=== PATIENT | male | born 1945 | race Caucasian/White ===

== ENCOUNTER 2017-10-04 23:55 | Emergency (ER) | payer MEDICARE, OTHER ==
[~2017-10-04] VITALS: Ht 172.7 cm; Wt 77.1 kg
[~2017-10-04 23:55] MED LIST: AMLO-96 PO; CEFA2PLA5 IV; CELE-1 PO; ENAL20TA99 PO; ENOX80DI8 SQ; LEVO50TA86 PO; NAPR-1043 PO; OXYC-865 PO; RIVA15TA PO; RIVA20TA PO; SIMV-42 PO; TAMS0.4C70 PO; WARF-1 PO
[2017-10-05] MEDS ORDERED: DIAZEPAM 10 MG/2 ML SYR IVP ONE (00:25)
[2017-10-05] MEDS ORDERED: NS(*) 0.9% 1000 ML BAG 1,000 ML IV ONE (00:25)
[2017-10-05] MEDS ORDERED: KETOROLAC 15 MG/ML VIAL IVP ONE (00:25)
[2017-10-05 01:30] VITALS: BP 142/101
--- NOTE | 2017-10-05 01:43 | RADIOLOGY IMAGING REPORT ---
FACILITY: [facility] PATIENT NAME: Rj Crowley : 1945 MR: [id number] V: [id number] EXAM DATE: ORDERING PHYSICIAN: REBECCA TORRES TECHNOLOGIST: Location: [facility] [place] Patient: Rj Crowley : 1945 Visit/Account:[id number] Date of Sevice: 10/05/2017 VENOUS DOPP LOW RIGHT EXTREMIT HISTORY: Right lower extremity pain. Prior DVT. COMPARISON STUDIES: 01/01/2017 and 12/30/2016. FINDINGS: Grayscale compression, duplex and color Doppler interrogation of the right lower extremity deep veins from common femoral vein to proximal calf was performed. The greater saphenous vein in the ipsilater al proximal thigh was evaluated using similar technique. Imaging of the contralateral common femoral vein was obtained for comparison. Right lower extremity: Common femoral vein: Normal. Deep femoral vein: Normal. Femoral vein: There are linear echogenic bands in the proximal right superficial femoral vein that ma y be sequela of prior thrombus versus artifact. No acute thrombus. Popliteal vein: Normal. Visualized deep calf veins: Normal. Greater saphenous vein in the proximal thigh: Normal. Popliteal fossa: Normal. Right common femoral vein: Normal. IMPRESSION: 1. There is no evidence for deep venous thrombosis of the right lower extremity. Report Dictated By: Meryl Johnson at 10/05/2017 1:33 AM Report E-Signed By: Meryl Johnson at 10/05/2017 1:38 AM WSN:[id number]
[2017-10-05] MEDS ORDERED: MORPHINE 4 MG/ML SYR IVP ONE (01:50)
[2017-10-05] MEDS ORDERED: DICL-190 PO (01:52)
--- NOTE | 2017-10-05 01:52 | ER Report ---
History and Physical Time Seen By MD: 23:59 Hx. of Stated Complaint: RIGHT LEG PAIN, HIP TO FOOT. NEEDS KNEE REPLACEMENT. HPI/ROS CHIEF COMPLAINT: Right leg pain HISTORY OF PRESENT ILLNESS: 72-year-old male with history of surgery on right leg including tibial volodymyr removal and left knee replacement for osteoarthritis pending right knee replacement for osteoarthritis prior history of DVT presents with right lower extremity pain and discomfort from the right hip only down to the right calf excluding the knee after working on his feet for many hours in the home. Denies falls or trauma. Denies low back pain. Denies dysuria or hematuria. Denies fevers. Denies pain weighing from the back. Denies abdominal pain. No other concerns or complaints today. REVIEW OF SYSTEMS: Respiratory: No cough, no dyspnea. Cardiovascular: No chest pain, no palpitations. Gastrointestinal: No vomiting, no abdominal pain. Musculoskeletal: No back pain. Allergies: Coded Allergies: Shellfish (Verified Allergy, Mild, 10/05/17) ibuprofen (Verified Allergy, Mild, RASH, 10/05/17) Home Meds Reported Medications Tamsulosin Hcl (TAMSULOSIN HCL) 0.4 Mg Cap.er.24h, 0.4 MG PO DAILY, CAP 09/10/16 Levothyroxine Sodium (LEVOTHYROXINE SODIUM) 50 Mcg Tablet, 50 MCG PO QDAY 07/28/13 Amlodipine Besylate (AMLODIPINE BESYLATE) 5 Mg Tablet, 1 TAB PO QDAY, TAB TAKE ONE TABLET BY MOUTH EVERY DAY 07/28/13 Simvastatin (Zocor) 20 Mg Tablet, 20 MG PO QHS, 0 Refills 06/08/08 Enalapril Maleate (Vasotec) 20 Mg Tablet, 20 MG PO DAILY, 0 Refills 06/08/08 Discontinued Scripts Rivaroxaban 20 Mg (XARELTO 20 MG) 20 Mg Tablet, 20 MG PO DAILY, #30 TAB 2 Refills To start after completing Xarelto 15mg PO twice daily for 3 weeks (this would be approximately January 23). Prov:MARCELLE WATT MD 01/03/17 Rivaroxaban 15 Mg (XARELTO 15 MG) 15 Mg Tablet, 15 MG PO BID for 21 Days, #42 TAB 0 Refills Prov:MARCELLE WATT MD 01/03/17 Cefazolin Sodium/D5w (Cefazolin 2 Gram/100 ml-D5w) 2 Gram/100 Ml Plast..bag, 2 GM IV Q8H for 42 Days, #126 BAG 0 Refills Prov:MARCELLE WATT MD 01/03/17 Oxycodone Hcl/Acetaminophen (PERCOCET 5-325 MG TABLET) 1 Each Tablet, 1-2 TAB PO Q4-6H Y for PAIN, #20 Prov:IVETT SILVA DO 12/30/16 Hx Smoking: No Smoking Status: Never Smoker Hx Substance Use Disorder: No Constitutional Vital Sign - Last 24 Hours 10/04/17 10/05/17 10/05/17 10/05/17 23:59 00:15 00:30 00:45 Temp 98.6 Pulse 78 ? 78 Resp 16 B/P (MAP) 175/96 149/100 (116) Pulse Ox 94 95 95 10/05/17 10/05/17 01:00 01:15 Pulse 77 81 B/P (MAP) 148/82 (104) Pulse Ox 91 92 Physical Exam General Appearance: The patient is alert, has no immediate need for airway protection and no current signs of toxicity. Appears to be in no acute distress Eyes: Pupils equal and round no injection. Respiratory: Chest is non tender, lungs are clear to auscultation. Cardiac: regular rate and rhythm no murmurs gallops or rubs Gastrointestinal: Abdomen is soft and non tender, no masses, bowel sounds normal. Musculoskeletal: Neck: Neck is supple and non tender. Extremities have full range of motion and are non tender. Negative Homans sign negative straight leg test. Skin: No rashes or lesions. No edema DIFFERENTIAL DIAGNOSIS: After history and physical exam differential diagnosis was considered for rule out DVT given prior history of DVT. No suspected fracture. Pain control in the ED. Medical Decision Making ED Course/Re-evaluation ED Course Plan of care agreed-upon prior to placement orders. Patient reports inadequate analgesia 4 mg of morphine added prior to discharge. The patient DVT ultrasound results were discussed with patient and to be negative. Agrees to follow up with PCP for further care. Will switch from Aleve 2 diclofenac for now and patient instructed to avoid prolonged standing. Decision to Disposition Date: Oct 05, 2017 Decision to Disposition Time: 01:50 Depart Departure Latest Vital Signs Vital Signs Date Time Temp Pulse Resp B/P (MAP) Pulse Ox O2 Delivery O2 Flow Rate FiO2 10/05/17 01:15 81 92 10/05/17 01:00 148/82 (104) 10/04/17 23:59 98.6 16 Impression: Primary Impression: Right leg pain Condition: Improved Disposition: HOME OR SELF-CARE Referrals: [facility] (PCP) New Scripts Diclofenac Potassium (DICLOFENAC POTASSIUM) 50 Mg Tablet 25 MG PO TID Y for PAIN for 10 Days, #30 TAB Prov: REBECCA TORRES MD 10/05/17 Patient Instructions: Leg Pain (ED) REBECCA TORRES MD Oct 05, 2017 01:52
== END 2017-10-05 02:41 | disposition home or self-care (01) ==
LOC: ER 10-05 01:43
DX: M79.604 Pain in right leg (principal)
CPT/HCPCS: 93971; 96361; 96374; 96375; 99283; J1885; J2270; J3360; J7030